=== PATIENT | male | born 2000 | race Caucasian/White ===

== ENCOUNTER 2023-01-02 20:37 | Emergency (ER) | payer MEDICAID ==
[~2023-01-02] VITALS: Ht 177.8 cm; Wt 63.6 kg
[2023-01-02] MEDS ORDERED: TETanus/Pertussis (Acell)/Diphther VAC/PF (Tdap-Adult) 0.5ml syringe IMVAC ONE (21:30)
[2023-01-02] MEDS ORDERED: bacitracin 15gm ointment TP ONE (21:30)
[2023-01-02] MEDS ORDERED: LIDOcaine 1% W/epiNEPHrine 1:200,000 10ml vial IJ ONE (21:30)
[2023-01-02] MEDS ORDERED: LIDOCAINE 2%/EPI 1:100,000 inj. Multi-dose 20 ML VIAL IJ ONE (21:45)
== END 2023-01-02 22:33 | disposition home or self-care (01) ==
LOC: ER 20:38
DX: S61.012A Laceration without foreign body of left thumb without damage to nail, initial encounter (principal); W26.8XXA Contact with other sharp object(s), not elsewhere classified, initial encounter; Y93.89 Activity, other specified; Y92.89 Other specified places as the place of occurrence of the external cause; Y99.8 Other external cause status
CPT/HCPCS: 12041; 90471; 90715; 99284; A6449